=== PATIENT | male | born 1980 | race Caucasian/White ===

== ENCOUNTER → 2020-05-29 | Outpatient (CLI) | payer MEDICARE ==
[~2020-05-29] MED LIST: MEDROL DOSEPAK 24 MG PO; PROVENTIL HFA6.7 GM INH; ZITHROMAX250 MG PO
== END ==
LOC: SLEEP 11:14
DX: G47.33 Obstructive sleep apnea (adult) (pediatric) (principal)
CPT/HCPCS: 95811

== ENCOUNTER → 2020-08-01 | Outpatient (CLI) | payer MEDICARE | LOC: LAB 15:14 | DX: R73.9 Hyperglycemia, unspecified (principal); E78.2 Mixed hyperlipidemia; R53.83 Other fatigue; E66.9 Obesity, unspecified | CPT/HCPCS: 36415; 80061; 83036; 84443 ==